=== PATIENT | female | born 1985 | race Caucasian/White ===

== ENCOUNTER → 2019-06-10 | Outpatient (CLI) | payer OTHER ==
--- NOTE | 2019-06-10 09:32 | REP ---
CT paranasal sinuses: 06/10/2019. Indication: Sinusitis. Sinus pain. Comparison: None. Technique: Unenhanced axial CT images of the paranasal sinuses were performed with coronal reconstructions provided. Findings: No air-fluid levels or frothy secretions are present within the paranasal sinuses. Very minimal periosteal distal thickening is noted within the inferior left maxillary sinus. The sinonasal passageways are patent. Very minimal rightward deviation of the nasal septum is present. The mastoid air cells are clear. No ocular, intraorbital or intracranial abnormalities are detected. 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 Impression: No significant paranasal sinus mucosal disease by CT evaluation. Electronically Signed by Aldo Fernandes DO 06/10/2019 09:24 A
== END ==
LOC: M RAD 08:16
PROVIDERS: ATTEND Family Medicine
DX: J32.9 Chronic sinusitis, unspecified (principal)